=== PATIENT | female | born 1990 | race Caucasian/White ===

== ENCOUNTER 2016-10-23 08:56 | Emergency (ER) | payer OTHER ==
--- NOTE | 2016-10-25 16:27 | ER ---
ADMIT: 10/23/2016 RM/LOC: ER [facility] MR#: [id number] [address] [id number] GIUSEPPE ROSALES Ruba [address] [place] [address] Emergency Room Report SEX: F AGE: 25 : 1990 DATE: 10/23/2016 ADDENDUM: CHIEF COMPLAINT: Numbness and tingling of the right side of body. HISTORY OF PRESENT ILLNESS: This is a 25-year-old, who had numbness and tingling just when she woke up this morning. It kind of went away, then she developed a headache and she does not really have a history of having headaches. She did take some ibuprofen, it did not improve the headache and then she started having more numbness and tingling in her right side again. CT was done of her head in the ER, it was negative for any acute findings. Her numbness, tingling has slightly improved, but it is still little bit there in her right hand. I am discharging her home, having her followup with Dr. Ford. CLINICAL IMPRESSION: Transient paresthesia to the right side of the body. ANTHONY Gary / Julian Bain MD / raoul JOB #: [id number] CC: Julian Bain MD, Attending Physician Hung Ford MD, Family Physician
== END 2016-10-23 11:49 | disposition home or self-care (01) ==
LOC: ER 08:56
DX: R20.2 Paresthesia of skin (principal)